=== PATIENT | female | born 1990 | race Caucasian/White ===

== ENCOUNTER 2018-06-26 19:48 | Emergency (ER) | payer OTHER ==
[~2018-06-26] VITALS: Ht 167.6 cm; Wt 55.6 kg
[2018-06-26 20:29] LABS: HEMOGLOBIN 12.1 G/DL (11.9-15.5); MCH 30.9 PG (29.0-34.0); MCHC 32.7 G/DL (30.0-36.0); MCV 94.6 FL (83-99); PLATELET COUNT 189 K/uL (156-360); RBC DIS.WIDTH-CV 14.3 % (11.8-14.6); RBC DIS.WIDTH-SD 49.9 % (39-53); RED BLOOD COUNT 3.91 M/uL (3.80-5.20); WHITE BLOOD COUNT 5.8 K/uL (4.1-10.2)
[2018-06-26 21:11] LABS: CHLORIDE 108 mEq/L (99-109); SODIUM 144 mEq/L (136-147)
[2018-06-26 21:13] LABS: GLUCOSE 78 mg/dL (70-99)
[2018-06-26 21:17] LABS: CREATININE 0.6 mg/dL (0.6-1.3); GFR ESTIMATE (CALCULATED) > 59 mL/min/
[2018-06-26 21:18] LABS: UREA NITROGEN (BUN) 12 mg/dL (9-23)
[2018-06-26 21:26] LABS: QUANTITATIVE HCG < 4.0 MIU/ML
[2018-06-27] MEDS ORDERED: PEPCID20 MG PO (00:07)
[2018-06-27] MEDS ORDERED: PREDNISONE10 M1 PO (00:07)
[2018-06-27] MEDS ORDERED: KEFLEX500 MG PO (00:12)
[2018-06-27 00:23] VITALS: BP 107/71
== END 2018-06-27 00:23 | disposition home or self-care (01) ==
LOC: EME 19:48
PROVIDERS: Physician Assistant
DX: R21 Rash and other nonspecific skin eruption (principal); M79.89 Other specified soft tissue disorders; Z91.030 Bee allergy status
CPT/HCPCS: 80048; 84702; 85027; 93971; 99281; 99285; J1100; J1200; J7030; S0028